=== PATIENT | female | born 1950 | race Caucasian/White ===

== ENCOUNTER → 2017-06-17 16:38 | Outpatient (CLI) | payer MEDICARE ==
[2014-03-07 06:07] VITALS: BMI 30.1
[~2017-06-17 16:38] MED LIST: BYSTOLIC2.5 MG PO; HYDROCHLOROTHIA25 MG PO; MULTI-DAY VITAM1 TAB PO; NEURONTIN 300300 MG PO; OCUVITE TABLET1 TA1 PO; POTASSIUM20 MEQ/15 PO; ZANAFLEX4 MG PO
[2017-06-17 19:36] LABS: CALC OSMOLALITY 282 mosm/kg (275-300); CALCIUM 9.4 mg/dL (8.5-10.1); CARBON DIOXIDE 29.7 mmol/L (21.0-32.0); CHLORIDE - SERUM 105 mmol/L (98-107); CREATININE - SERUM 0.8 mg/dL (0.6-1.3); GLUCOSE 88 mg/dL (74-106); POTASSIUM - SERUM 3.5 mmol/L (3.5-5.1); SODIUM 143 mmol/L (136-145); UREA NITROGEN 11 mg/dL (7-18); eGFR NON AFRICAN AMERICAN 75 mL/min (90-120)
== END | disposition home or self-care (01) ==
LOC: D.LABREF 16:38
PROVIDERS: Internal Medicine Interventional Cardiology
DX: I10 Essential (primary) hypertension (principal); R00.2 Palpitations

== ENCOUNTER 2018-12-25 08:20 | Day surgery (SDC) | payer MEDICARE ==
[2018-12-24 10:17] LABS: HEMATOCRIT 39.6 % (36.0-48.0); HEMOGLOBIN 13.9 g/dL (12-16); MCH 31.4 pg (26.0-34.0); MCHC 35.1 g/dL (31.0-37.0); MCV 89.6 fL (80.0-100.0); MEAN PLATELET VOLUME 8.8 fL (7.4-10.4); RBC 4.42 10x6/uL (4.00-5.40); WBC 6.5 10x3/uL (4.8-10.8)
[~2018-12-25] VITALS: Ht 160 cm; Wt 0.5 kg
[~2018-12-25 08:20] MED LIST changes: +CALCIUM 250+D T1 TAB; +TENORMIN25 MG
[2018-12-25 09:10] VITALS: Ht 160 cm; Wt 0.5 kg
--- NOTE | 2018-12-25 11:28 | NUR ---
1100-UPDATED ON DELAY TO PROCEDURE--APPROX ONE HOUR--VALIUM GIVEN
[2018-12-25] MEDS ORDERED: HYDROCODON-ACE1 EA10 PO (13:32)
--- NOTE | 2018-12-29 07:51 | OP ---
PATIENT NAME: SALVADOR RENEE MEDICAL RECORD: [id number] :48 LOCATION:D.OPS ADMISSION DATE: SURGEON: STEPAN DORMAN MD DATE OF OPERATION: 12/25/2018 PREOPERATIVE DIAGNOSIS: Medial meniscus tear of the right knee. POSTOPERATIVE DIAGNOSES: 1. Medial meniscus tear of the right knee. 2. Lateral meniscus tear of the right knee. 3. Medial collateral ligament tear of the right knee. PROCEDURE: 1. Arthroscopic partial medial meniscectomy. 2. Arthroscopic partial lateral meniscectomy. SURGEON: Stepan Dorman MD ANESTHESIA: General. INTRAOPERATIVE COMPLICATIONS: Essentially none. SUMMARY OF PATHOLOGIC FINDINGS: Upon anesthetic evaluation, the patient had substantial laxity of the medial collateral ligament, not seen preoperatively or appreciated on the MRI; however, she had a complex tear of the medial meniscus as well as a radial sagittal tear of the lateral meniscus. 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 Some loose bodies were noted. These were all removed at that time. OPERATIVE SUMMARY IN DETAIL: After obtaining the appropriate preoperative orthopedic surgery consent as well as anesthetic consultation, evaluation and clearance, the patient was brought to the operating room and placed on the operating table in supine position. After general laryngeal mask airway was administered, tourniquet was placed on the proximal aspect of the right lower extremity. Right lower extremity was then prepped and draped in routine sterile fashion. The leg was elevated and exsanguinated, tourniquet inflated to 300 mmHg. Routine inferolateral portal was established followed by superomedial portal and inferomedial portal. Diagnostic arthroscopy revealed the patient had a very complex tearing of the medial meniscus. Again, the patient's medial compartment opened up more than it physiologic, worrisome for medial collateral ligament tear. The medial meniscus was debrided with a combination of both meniscotomes as well as an arthroscopic resector to take down the medial meniscus and at the posterior medial corner back to capsule, the medial meniscus was debrided back to stable meniscal elements. Ironically, the patient had very minimal cartilaginous defect of the medial compartment with the leg in the [id number] position. The lateral meniscus was evaluated and found to have tearing as described above. This was gently debrided with an arthroscopic resector. Lastly, the apex of the patella as well as the trochlear groove were gently debrided using the resector where the patient has had the chondromalacia as described above. The knee was insufflated with 30 cc of 0.25% Marcaine and 80 mg of Depo-Medrol. Arthroscopy portals were closed in routine interrupted fashion. The patient was awakened and taken to recovery room in stable condition. After the tourniquet was inflated, the patient was awakened and taken to the recovery room in stable condition. All final needle and sponge counts were correct. OPERATIVE REPORT [id number] SALVADOR RENEE TRANSJD:[id number] Voice Confirmation ID: [id number] DOCUMENT ID: [id number] DANDY RIVERA, STEPAN TRUJILLO at 0751 CC: [id number] DICTATION DATE: 12/26/18 115 HAND LAMINATOR: 12/26/18 1432 [facility] 12/25/18 [id number] [place] [address]
== END 2018-12-25 16:30 | disposition home or self-care (01) ==
LOC: D.OPS 08:20 → D.PAN 09:45 → D.OPS 09:45
PROVIDERS: Anesthesiology; ATTEND Orthopaedic Surgery
DX: S83.231A Complex tear of medial meniscus, current injury, right knee, initial encounter (principal); S83.281A Other tear of lateral meniscus, current injury, right knee, initial encounter; S83.411A Sprain of medial collateral ligament of right knee, initial encounter; M94.261 Chondromalacia, right knee; Z01.812 Encounter for preprocedural laboratory examination

== ENCOUNTER → 2019-01-28 08:24 | Outpatient (CLI) | payer MEDICARE ==
[2018-12-25 09:10] VITALS: BMI 33.7
[~2019-01-28 08:24] MED LIST changes: +HYDROCODON-ACE1 EA10 PO
--- NOTE | 2019-01-30 13:25 | EC ---
PATIENT:SALVADOR RENEE DATE OF SERVICE: 01/28/19 SEX: F MEDICAL RECORD: [id number] DATE OF : 48 LOCATION:D.[facility] AGE OF PATIENT: 69 ADMISSION DATE: 01/28/19 REFERRING PHYSICIAN: INTERPRETING PHYSICIAN: NIKKIE SAHU MD ECHOCARDIOGRAM REPORT ECHO CHARGES 4 ECHO COMPLETE Date: 01/28/19 CLINICAL DIAGNOSIS: MURMUR ECHOCARDIOGRAPHIC MEASUREMENTS (adult normal given) AC root (d.<3.7cm) 2.8 cm LV Septum d (<1.2 cm> 1.2 cm Valve Excursion 1.4 cm LV Septum (systole) 1.5 cm Left Atria (s.<4.0cm> 3.7 cm LVPW d(<1.2cm) 1.2 cm RV (d.<2.3cm) 3.9 cm LVPW (sytole) 1.7 cm LV diastole(<5.6CM) 4.5 cm MV E-F(>70mm/sec) cm LV systole 3.2 cm LVOT Diameter 1.9 cm MV exc.(>10mm) 1.4 cm Est.ejection fraction (50-75%) % DOPPLER: LVIT cm/sec A 89.0 cm/sec E 48.0 cm/sec LA cm/sec RVSP 27 mmHg LVOT 99 cm/sec AOP1/2T 716 m/s Asc. Ao 133 cm/sec RVOT 66 cm/sec RA cm/sec PA 76 cm/sec AV Gradient Peak 7.04 mmHg AV Mean 3.88 mmHg AV Area 2.1 cm MV Gradient Peak 4.79 mmHg MV Mean 1.37 mmHg MV Area cm COMMENTS: Ambulance Driver: Lalo KEYS Hearing Aid Repair Technician: 1 Dr. Sahu TAPE# PACS Pericardial Effusion N DATE OF SERVICE: 01/28/2019 ECHOCARDIOGRAM DATE OF SERVICE: 01/28/2019 FINDINGS: 1. Left ventricular chamber size is within normal limits. Left ventricular systolic function is normal. Overall ejection fraction estimated at 55% to 60%. 2. Left atrium, right atrium, and right ventricle chamber sizes are within ECHOCARDIOGRAM REPORT [id number] SALVADOR RENEE normal limits. 3. Valvular structures have normal structure and motion. 4. Doppler interrogation reveals mild aortic insufficiency, mild tricuspid regurgitation, no other valvular insufficiency or stenosis. Pulmonary systolic pressure is normal estimated at 27 mmHg. 5. No evidence of pericardial effusion or left ventricular thrombus. TRANSINT:[id number] Voice Confirmation ID: [id number] DOCUMENT ID: [id number] NIKKIE SAHU MD at 1325 CC: [id number] DICTATION DATE: 01/28/19 170 TOWER ERECTOR HELPER: 01/28/19 174 DEP CLI 01/28/19 [place] [id number] [place] [id number]
== END | disposition home or self-care (01) ==
LOC: D.HCCARDIO 08:24
PROVIDERS: ATTEND Internal Medicine Interventional Cardiology
DX: R42 Dizziness and giddiness (principal)

== ENCOUNTER 2019-07-19 00:17 | Emergency (ER) | payer MEDICARE ==
[~2019-07-19] VITALS: Ht 160 cm; Wt 91.8 kg
[2019-07-19 00:32] VITALS: Ht 160 cm; Wt 91.8 kg
[2019-07-19] MEDS ORDERED: BUPROPION HCL100 MG PO (00:34)
[2019-07-19] MEDS ORDERED: VIBRAMYCIN 100100 MG PO (01:56)
[2019-07-19 02:01] VITALS: BP 125/53
== END 2019-07-19 02:03 | disposition home or self-care (01) ==
LOC: D.ER 00:17
DX: M79.651 Pain in right thigh (principal); L08.9 Local infection of the skin and subcutaneous tissue, unspecified